=== PATIENT | male | born 1955 | race Caucasian/White ===

== ENCOUNTER 2019-03-19 10:28 | Inpatient (IN) | payer MEDICARE, OTHER ==
[2019-03-19] MEDS ORDERED: ASPIRIN 81 MG TABLET, CHEWABLE PO ONE (10:43)
--- NOTE | 2019-03-19 10:45 | ER Document Report ---
ED Medical Screen (RME) - General Chief Complaint: Shortness Of Breath Stated Complaint: SHORT OF BREATH,PALPITATIONS Time Seen by Provider: 03/19/19 10:39 Mode of Arrival: Ambulatory Information source: Patient Notes: 63-year-old male with history of CHF A. gloria presents to the emergency department with complaints of 2 days of shortness of breath. Reports he gets short of breath walking 10 steps. Denies vomiting diarrhea. Reports chest tightness to the left side of his chest. Patient is taking Pradaxa. [employer] is Dr. Tellez out [facility]. I have greeted and performed a rapid initial assessment of this patient. A comprehensive ED assessment and evaluation of the patient, analysis of test results and completion of the medical decision making process will be conducted by additional ED providers. Dictation of this chart was performed using voice recognition software; therefore, there may be some unintended grammatical errors. - Related Data Allergies/Adverse Reactions: nitroglycerin Allergy (Verified 03/19/19 10:43) Past Medical History - Social History Chew tobacco use (# tins/day): No Frequency of alcohol use: None Drug Abuse: None Physical Exam - Vital signs Vitals: Temp Pulse Resp BP Pulse Ox 97.8 F 93 24 H 157/98 H 96 03/19/19 10:36 03/19/19 10:36 03/19/19 10:36 03/19/19 10:36 03/19/19 10:36 Course - Vital Signs Vital signs: Temp Pulse Resp BP Pulse Ox 97.8 F 93 24 H 157/98 H 96 03/19/19 10:36 03/19/19 10:36 03/19/19 10:36 03/19/19 10:36 03/19/19 10:36
--- NOTE | 2019-03-19 11:46 | EKG REPORT ---
SEVERITY:- ABNORMAL ECG - ATRIAL FIBRILLATION, V-RATE 89-115 LVH WITH SECONDARY REPOLARIZATION ABNORMALITY LEFT BUNDLE BRANCH BLOCK : Confirmed by: Meaghan Garcia MD 19-Mar-2019 11:45:37
[2019-03-19 12:12] LABS: ABSOLUTE EOSINOPHILS # (AUTO) 0.1 10^3/uL (0.0-0.6); ABSOLUTE LYMPHOCYTES (AUTO) 2.2 10^3/uL (0.5-4.7); ABSOLUTE MONOCYTES (AUTO) 0.8 10^3/uL (0.1-1.4); ABSOLUTE NEUT (AUTO) 6.6 10^3/uL (1.7-8.2); BASOPHILS % (AUTO) 0.4 % (0-2); EOSINOPHILS % (AUTO) 0.7 % (0-6); HEMATOCRIT 45.2 % (37.9-51.0); HEMOGLOBIN 15.3 g/dL (13.5-17.0); LYMPHOCYTES % (AUTO) 22.3 % (13-45); MEAN CORPUSCULAR HEMOGLOBIN 31.4 pg (27.0-33.4); MEAN CORPUSCULAR HGB CONC 33.8 g/dL (32.0-36.0); MEAN CORPUSCULAR VOLUME 93 fl (80-97); MONOCYTES % (AUTO) 8.4 % (3-13); PLATELET COUNT 195 10^3/uL (150-450); RED BLOOD COUNT 4.87 10^6/uL (4.35-5.55); RED CELL DISTRIBUTION WIDTH 14.7 % (11.5-14.0); SEGMENTED NEUTROPHILS % (AUTO) 68.2 % (42-78); TOTAL CELLS COUNTED % (AUTO) 100 %; WHITE BLOOD COUNT 9.7 10^3/uL (4.0-10.5)
--- NOTE | 2019-03-19 12:25 | RADIOLOGY REPORT (SQ) ---
EXAM DESCRIPTION: CHEST 2 VIEWS COMPLETED DATE/TIME: 03/19/2019 11:48 am REASON FOR STUDY: chest tight sob COMPARISON: None. EXAM PARAMETERS: NUMBER OF VIEWS: two views TECHNIQUE: Digital Frontal and Lateral radiographic views of the chest acquired. RADIATION DOSE: NA LIMITATIONS: none FINDINGS: LUNGS AND PLEURA: Interstitial pulmonary edema is present with Bryant lines at both lung b ases. Pulmonary vascular congestion is present. No gross pleural effusion. No pneumothorax. MEDIASTINUM AND HILAR STRUCTURES: No masses or contour abnormalities. HEART AND VASCULAR STRUCTURES: Mild cardiomegaly BONES: No acute findings. HARDWARE: None in the chest. OTHER: No other significant finding. IMPRESSION: Mild cardiomegaly with interstitial pulmonary edema. TECHNICAL DOCUMENTATION: JOB ID: [id number] [employer]- All Rights Reserved Reading location - IP/workstation name: [email or web address]
[2019-03-19 12:29] LABS: ALBUMIN 4.1 g/dL (3.5-5.0); ALKALINE PHOSPHATASE 51 U/L (38-126); ANION GAP 10 (5-19); ASPARTATE AMINO TRANSFERASE 29 U/L (17-59); BILIRUBIN,DIRECT 0.1 mg/dL (0.0-0.4); BILIRUBIN,TOTAL 1.1 mg/dL (0.2-1.3); BLOOD UREA NITROGEN 16 mg/dL (7-20); CALCIUM 9.7 mg/dL (8.4-10.2); CARBON DIOXIDE 25 mmol/L (22-30); CHLORIDE 106 mmol/L (98-107); GLUCOSE 177 mg/dL (75-110); POTASSIUM 3.9 mmol/L (3.6-5.0); TOTAL PROTEIN 7.1 g/dL (6.3-8.2)
[2019-03-19 12:41] LABS: TROPONIN I 0.058 ng/mL
[2019-03-19] MEDS ORDERED: FUROSEMIDE INJ/PF 20 MG/2 ML SDV IV ONE (13:46)
--- NOTE | 2019-03-19 13:46 | ER Document Report ---
ED General - General Chief Complaint: Shortness Of Breath Stated Complaint: SHORT OF BREATH,PALPITATIONS Time Seen by Provider: 03/19/19 10:39 Mode of Arrival: Ambulatory Notes: 63-year-old male with medical history of CHF and A. fib presents with complaints of dyspnea for the past 2 days. Patient states it is worse with exertion and states it feels like he cannot get a full breath in. Pt states he becomes short of breath after walking only 10 steps. Patient states also feels like his abdomen is more swollen. Patient takes his lasix once daily. Patient has been dropping sats to 91% in triage and was placed on oxygen. Pt denies ever being on O2. Pt has a history of ablation and cardioversion in 2015. - Related Data Allergies/Adverse Reactions: nitroglycerin Adverse Reaction (Verified 03/19/19 14:56) Hypotension Home Medications: coreg pradaxa entresto, januvia, atorvastatin, furosemide. Home dosage list on chart. Past Medical History - General Information source: Patient - Social History Smoking Status: Former Smoker Chew tobacco use (# tins/day): No Frequency of alcohol use: None Drug Abuse: None Family History: None Patient has suicidal ideation: No Patient has homicidal ideation: No - Past Medical History Cardiac Medical History: Reports: Hx Atrial Fibrillation, Hx Congestive Heart Failure, Hx Hypertension Denies: Hx Hypercholesterolemia Endocrine Medical History: Reports: Hx Diabetes Mellitus Type 2 Past Surgical History: Reports: Hx Cardiac Catheterization, Hx Cardiac Surgery - ablation, Hx Tonsillectomy Review of Systems - Review of Systems Notes: Constitutional: Negative for fever. HENT: Negative for sore throat. Eyes: Negative for visual changes. Cardiovascular: Negative for chest pain. Respiratory: Positive for shortness of breath. Gastrointestinal: Negative for abdominal pain, vomiting or diarrhea. Genitourinary: Negative for dysuria. Musculoskeletal: Negative for back pain. Skin: Negative for rash. Neurological: Negative for headaches, weakness or numbness. 10 point ROS negative except as marked above and in HPI. Physical Exam - Vital signs Vitals: Temp Pulse Resp BP Pulse Ox 97.8 F 93 24 H 157/98 H 96 03/19/19 10:36 03/19/19 10:36 03/19/19 10:36 03/19/19 10:36 03/19/19 10:36 - Notes Notes: GENERAL: Well-appearing, well-nourished and in no acute distress. HEAD: Atraumatic, normocephalic. EYES: Pupils equal round and reactive to light, extraocular movements intact, sclera anicteric, conjunctiva are normal. NECK: Normal range of motion, supple without lymphadenopathy or JVD. LUNGS: Breath sounds clear to auscultation bilaterally and equal. No wheezes rales or rhonchi. HEART: Irregularly irregular rate and rhythm without murmurs, rubs or gallops. ABDOMEN: Soft, nontender, mildly distended. No guarding, no rebound. No masses appreciated. EXTREMITIES: Normal range of motion, no pitting or edema. No clubbing or cyanosis. NEUROLOGICAL: Cranial nerves II through XII grossly intact. Normal speech, normal gait. PSYCH: Normal mood, normal affect. SKIN: Warm, Dry, normal turgor, no rashes or lesions noted. Course - Re-evaluation Re-evalutation: 03/19/19 63-year-old male presents with dyspnea for 2 days. Pt was dropping O2 to 91% in triage and thus pt was placed on O2. CXR shows interstitial pulmonary edema with pulmonary vascular congestion and mild cardiomegaly. BNP is elevated. Labwork otherwise unremarkable. Concern for acute CHF exacerbation. 03/19/19 14:05 Discussed with attending, Dr. Olson, who agreed with plan of care for admission. Hospitalist consulted for admission. [facility]ACILITY ATTENDANT Collin Doherty accepted pt for admission. - Vital Signs Vital signs: Temp Pulse Resp BP Pulse Ox 97.5 F 103 H 18 155/101 H 93 03/19/19 17:50 03/19/19 19:00 03/19/19 17:50 03/19/19 17:50 03/19/19 17:50 - Laboratory Result Diagrams: 03/19/19 11:35 03/19/19 11:35 Laboratory results interpreted by me: 03/19/19 03/19/19 03/19/19 11:35 11:35 11:35 RDW 14.7 H Glucose 177 H NT-Pro-B Natriuret Pep 6070 H Discharge - Discharge Clinical Impression: Acute exacerbation of CHF (congestive heart failure) Qualifiers: Heart failure type: unspecified Qualified Code(s): I50.9 - Heart failure, unspecified Condition: Stable Disposition: ADMITTED OBSERVATION Admitting Provider: Martínez (Hospitalist) Unit Admitted: Medical Floor
[2019-03-19] MEDS ORDERED: MAG HYDROX/AL HYDROX/SIMETH SUSP 30 ML UDCUP PO PRN (14:31)
[2019-03-19] MEDS ORDERED: ONDANSETRON HCL INJ/PF 4 MG/2 ML SDV IV PRN (14:31)
[2019-03-19] MEDS ORDERED: ACETAMINOPHEN 325 MG TABLET PO PRN (14:31)
[2019-03-19] MEDS ORDERED: GLUCAGON,HUMAN RECOMB 1 MG INJ IM PRN (14:38)
[2019-03-19] MEDS ORDERED: DEXTROSE 40% GEL 15 GM TUBE PO PRN ×2 (14:38)
[2019-03-19] MEDS ORDERED: DEXTROSE 50%-WATER 25 GM/50 ML DISP.SYRIN IV PRN ×2 (14:38)
--- NOTE | 2019-03-19 14:47 | PDOC H&P ---
History of Present Illness Admission Date/PCP: 03/19/2019 No primary care Patient complains of: Shortness of breath palpitations History of Present Illness: SCOTT KAMINSKI is a 63 year old male Past Medical History Cardiac Medical History: Reports: Atrial Fibrillation, Congestive Heart Failure, Hypertension Denies: Hyperlipidema Endocrine Medical History: Reports: Diabetes Mellitus Type 2 Past Surgical History Past Surgical History: Reports: Cardiac Catheterization, Tonsillectomy Social History Information Source: Patient Lives with: Family Smoking Status: Former Smoker Electronic Cigarette use?: No Frequency of Alcohol Use: None Hx Recreational Drug Use: No Drugs: None Hx Prescription Drug Abuse: No - Advance Directive Resuscitation Status: Full Code Family History Family History: Hyperlipidemia, Hypertension Parental Family History Reviewed: Yes Children Family History Reviewed: Yes Sibling(s) Family History Reviewed.: Yes Medication/Allergy Home Medications: Atorvastatin Calcium [Lipitor 20 mg Tablet] 20 mg PO QHS 03/19/19 Dabigatran Etexilate Mesylate [Pradaxa 150 mg Capsule] 150 mg PO Q12 03/19/19 Gabapentin 800 mg PO Q8 03/19/19 Nifedipine [Nifedipine ER] 60 mg PO DAILY 03/19/19 Sacubitril/Valsartan [Entresto 97 mg/103 mg Tablet] 1 tab PO Q12 03/19/19 Sitagliptin Phosphate [Januvia 50 mg Tablet] 100 mg PO DAILY 03/19/19 Allergies/Adverse Reactions: nitroglycerin Allergy (Verified 03/19/19 10:43) Review of Systems Constitutional: ABSENT: chills, fever(s), headache(s), weight gain, weight loss Eyes: ABSENT: visual disturbances Ears: ABSENT: hearing changes Cardiovascular: PRESENT: palpitations. ABSENT: chest pain, dyspnea on exertion, edema, orthropnea Respiratory: PRESENT: dyspnea. ABSENT: cough, hemoptysis Gastrointestinal: ABSENT: abdominal pain, constipation, diarrhea, hematemesis, hematochezia, nausea, vomiting Genitourinary: ABSENT: dysuria, hematuria Musculoskeletal: ABSENT: joint swelling Integumentary: ABSENT: rash, wounds Neurological: ABSENT: abnormal gait, abnormal speech, confusion, dizziness, focal weakness, syncope Psychiatric: ABSENT: anxiety, depression, homidical ideation, suicidal ideation Endocrine: ABSENT: cold intolerance, heat intolerance, polydipsia, polyuria Hematologic/Lymphatic: ABSENT: easy bleeding, easy bruising Physical Exam Vital Signs: Temp Pulse Resp BP Pulse Ox 97.8 F 93 25 H 169/103 H 93 03/19/19 10:36 03/19/19 10:36 03/19/19 11:36 03/19/19 11:36 03/19/19 11:36 Intake & Output 03/18/19 03/19/19 03/20/19 06:59 06:59 06:59 Weight 101.5 kg General appearance: PRESENT: no acute distress, well-developed, well-nourished Head exam: PRESENT: atraumatic, normocephalic Eye exam: PRESENT: conjunctiva pink, EOMI, PERRLA. ABSENT: scleral icterus Ear exam: PRESENT: normal external ear exam Mouth exam: PRESENT: moist, tongue midline Neck exam: ABSENT: carotid bruit, JVD, lymphadenopathy, thyromegaly Respiratory exam: PRESENT: decreased breath sounds, rales, symmetrical, unlabored. ABSENT: rhonchi, wheezes Cardiovascular exam: PRESENT: RRR. ABSENT: diastolic murmur, rubs, systolic murmur Pulses: PRESENT: normal dorsalis pedis pul Vascular exam: PRESENT: normal capillary refill GI/Abdominal exam: PRESENT: normal bowel sounds, soft. ABSENT: distended, guarding, mass, organolmegaly, rebound, tenderness Rectal exam: PRESENT: deferred Extremities exam: PRESENT: full ROM. ABSENT: calf tenderness, clubbing, pedal edema Neurological exam: PRESENT: alert, awake, oriented to person, oriented to place, oriented to time, oriented to situation, CN II-XII grossly intact. ABSENT: motor sensory deficit Psychiatric exam: PRESENT: appropriate affect, normal mood. ABSENT: homicidal ideation, suicidal ideation Skin exam: PRESENT: dry, intact, warm. ABSENT: cyanosis, rash Results Laboratory Results: 03/19/19 11:35 03/19/19 11:35 03/19/19 03/19/19 11:35 11:35 WBC 9.7 RBC 4.87 Hgb 15.3 Hct 45.2 MCV 93 MCH 31.4 MCHC 33.8 RDW 14.7 H Plt Count 195 Seg Neutrophils % 68.2 Sodium 141.0 Potassium 3.9 Chloride 106 Carbon Dioxide 25 Anion Gap 10 BUN 16 Creatinine 0.95 Est GFR ( Amer) > 60 Glucose 177 H Calcium 9.7 Total Bilirubin 1.1 AST 29 Alkaline Phosphatase 51 Total Protein 7.1 Albumin 4.1 03/19/19 11:35 Troponin I 0.058 NT-Pro-B Natriuret Pep 6070 H Impressions: Chest X-Ray 03/19/19 10:43 IMPRESSION: Mild cardiomegaly with interstitial pulmonary edema. Assessment and Plan - Diagnosis (1) Acute on chronic systolic (congestive) heart failure Is this a current diagnosis for this admission?: Yes Plan: 03/19/2019-admit to IM. Continue beta-blockers, Entresto, aspirin lactone and Lasix 40 mg IV 3 times daily. Echocardiogram. Make changes plan of care further once we have return of diagnostics. (2) Type 2 diabetes mellitus Is this a current diagnosis for this admission?: Yes Plan: 03/19/2019-continue home oral anti-diabetic medication. Carbohydrate controlled diet. Sliding scale insulin before meals and at bedtime (3) Hypertension Is this a current diagnosis for this admission?: Yes Plan: 03/19/2019-continue all home medications other than Coreg. Switching Coreg to metoprolol succinate 25 g p.o. twice daily will titrate to effect. Patient will also be diuresed and given nitro paste. (4) Hyperlipidemia Is this a current diagnosis for this admission?: Yes Plan: 03/19/2019-lipid panel continue antilipidemetics - Time Time Spent with patient: 35 or more minutes - Inpatient Certification Based on my medical assessment, after consideration of the patient's comorbidities, presenting symptoms, or acuity I expect that the services needed warrant INPATIENT care.: Yes I certify that my determination is in accordance with my understanding of Medicare's requirements for reasonable and necessary INPATIENT services [42 CFR 412.3e].: Yes Medical Necessity: Significant Comorbidiites Make Outpatient Treatment Too Ri denae, Need Close Monitoring Due to Risk of Patient Decompensation
[2019-03-19] MEDS ORDERED: NITROGLYCERIN 2% OINTMENT 1 GM PACKET ONE (15:00)
[2019-03-19] MEDS ORDERED: MORPHINE SULFATE 10 MG/ML INJ IV ONE (15:00)
[2019-03-19] MEDS ORDERED: NITROGLYCERIN 2% OINTMENT 1 GM PACKET TP ONE (15:04)
[2019-03-19] MEDS: INSULIN REG, HUMAN 100 UNIT/ML 3 ML VIAL (PYX) SUBCUT SCH ×2 (15:17→21:35)
[2019-03-19] MEDS ORDERED: INFLUENZA QUAD (6MOS+) 2019-20 VAC 0.5 ML SYR IM ONE (18:45)
[2019-03-19] MEDS: FUROSEMIDE INJ/PF 40 MG/4 ML SDV IV SCH (19:54)
[2019-03-19] MEDS: METOPROLOL SUCCINATE 25 MG TAB.SR.24H PO SCH (19:54)
[2019-03-19] MEDS: OXYCODONE-ACETAMINOPHEN 5-325 MG TABLET PO PRN ×2 (19:54→23:56)
[2019-03-19] MEDS: TEMAZEPAM 15 MG CAPSULE PO PRN (19:57)
[2019-03-20 04:46] LABS: ABSOLUTE BASOPHILS # (AUTO) 0.1 10^3/uL (0.0-0.2); ABSOLUTE EOSINOPHILS # (AUTO) 0.1 10^3/uL (0.0-0.6); ABSOLUTE LYMPHOCYTES (AUTO) 2.5 10^3/uL (0.5-4.7); ABSOLUTE MONOCYTES (AUTO) 0.9 10^3/uL (0.1-1.4); ABSOLUTE NEUT (AUTO) 7.3 10^3/uL (1.7-8.2); BASOPHILS % (AUTO) 0.5 % (0-2); EOSINOPHILS % (AUTO) 0.8 % (0-6); HEMATOCRIT 44.5 % (37.9-51.0); HEMOGLOBIN 15.1 g/dL (13.5-17.0); LYMPHOCYTES % (AUTO) 23.5 % (13-45); MEAN CORPUSCULAR HEMOGLOBIN 31.5 pg (27.0-33.4); MEAN CORPUSCULAR HGB CONC 33.9 g/dL (32.0-36.0); MEAN CORPUSCULAR VOLUME 93 fl (80-97); PLATELET COUNT 178 10^3/uL (150-450); RED BLOOD COUNT 4.79 10^6/uL (4.35-5.55); RED CELL DISTRIBUTION WIDTH 14.8 % (11.5-14.0); SEGMENTED NEUTROPHILS % (AUTO) 67.2 % (42-78); TOTAL CELLS COUNTED % (AUTO) 100 %; WHITE BLOOD COUNT 10.9 10^3/uL (4.0-10.5)
[2019-03-20 05:04] LABS: ANION GAP 12 (5-19); BLOOD UREA NITROGEN 19 mg/dL (7-20); CALCIUM 8.8 mg/dL (8.4-10.2); CARBON DIOXIDE 28 mmol/L (22-30); CHLORIDE 103 mmol/L (98-107); CHOLESTEROL 105.38 mg/dL (0-200); GLUCOSE 149 mg/dL (75-110); PHOSPHORUS 4.4 mg/dL (2.5-4.5); TRIGLYCERIDES 99 mg/dL (<150)
[2019-03-20 05:14] LABS: DIRECT LDL 72 mg/dL (<100)
[2019-03-20] MEDS: OXYCODONE-ACETAMINOPHEN 5-325 MG TABLET PO PRN ×5 (05:46→22:45)
[2019-03-20] MEDS: METOPROLOL SUCCINATE 25 MG TAB.SR.24H PO SCH (05:46)
[2019-03-20] MEDS: INSULIN REG, HUMAN 100 UNIT/ML 3 ML VIAL (PYX) SUBCUT SCH ×4 (07:45→22:45)
--- NOTE | 2019-03-20 07:56 | PDOC PROGRESS REPORT ---
Subjective Progress Note for:: 03/20/19 Subjective:: 03/20/2019-abdominal pain Reason For Visit: ACUTE EXACERBATION OF CHF Physical Exam Vital Signs: Temp Pulse Resp BP Pulse Ox 98.3 F 92 18 150/106 H 96 03/20/19 03:21 03/20/19 07:00 03/20/19 03:21 03/20/19 03:21 03/20/19 03:21 Intake & Output 03/19/19 03/20/19 03/21/19 06:59 06:59 06:59 Output Total 600 Balance -600 Weight 100.2 kg General appearance: PRESENT: no acute distress, well-developed, well-nourished Neck exam: ABSENT: carotid bruit, JVD, lymphadenopathy, thyromegaly Respiratory exam: PRESENT: clear to auscultation sherman. ABSENT: rales, rhonchi, wheezes Cardiovascular exam: PRESENT: RRR. ABSENT: diastolic murmur, rubs, systolic murmur Pulses: PRESENT: normal dorsalis pedis pul Vascular exam: PRESENT: normal capillary refill GI/Abdominal exam: PRESENT: hypoactive bowel sounds, soft, other - Good tympanic Rectal exam: PRESENT: deferred Extremities exam: PRESENT: full ROM. ABSENT: calf tenderness, clubbing, pedal edema Neurological exam: PRESENT: alert, awake, oriented to person, oriented to place, oriented to time, oriented to situation, CN II-XII grossly intact. ABSENT: motor sensory deficit Psychiatric exam: PRESENT: appropriate affect, normal mood. ABSENT: homicidal ideation, suicidal ideation Skin exam: PRESENT: dry, intact, warm. ABSENT: cyanosis, rash Results Laboratory Results: 03/20/19 04:18 03/20/19 04:18 03/19/19 03/19/19 03/20/19 11:35 11:35 04:18 WBC 9.7 10.9 H RBC 4.87 4.79 Hgb 15.3 15.1 Hct 45.2 44.5 MCV 93 93 MCH 31.4 31.5 MCHC 33.8 33.9 RDW 14.7 H 14.8 H Plt Count 195 178 Seg Neutrophils % 68.2 67.2 Sodium 141.0 Potassium 3.9 Chloride 106 Carbon Dioxide 25 Anion Gap 10 BUN 16 Creatinine 0.95 Est GFR ( Amer) > 60 Glucose 177 H Calcium 9.7 Phosphorus Magnesium Total Bilirubin 1.1 AST 29 Alkaline Phosphatase 51 Total Protein 7.1 Albumin 4.1 Triglycerides Cholesterol LDL Cholesterol Direct VLDL Cholesterol HDL Cholesterol 03/20/19 04:18 WBC RBC Hgb Hct MCV MCH MCHC RDW Plt Count Seg Neutrophils % Sodium 142.6 Potassium 4.0 Chloride 103 Carbon Dioxide 28 Anion Gap 12 BUN 19 Creatinine 1.15 Est GFR ( Amer) > 60 Glucose 149 H Calcium 8.8 Phosphorus 4.4 Magnesium 1.7 Total Bilirubin AST Alkaline Phosphatase Total Protein Albumin Triglycerides 99 Cholesterol 105.38 LDL Cholesterol Direct 72 VLDL Cholesterol 20.0 HDL Cholesterol 27 L 03/19/19 03/19/19 11:35 14:16 Troponin I 0.058 0.063 NT-Pro-B Natriuret Pep 6070 H Impressions: Chest X-Ray 03/19/19 10:43 IMPRESSION: Mild cardiomegaly with interstitial pulmonary edema. Assessment and Plan - Diagnosis (1) Acute on chronic systolic (congestive) heart failure Is this a current diagnosis for this admission?: Yes Plan: 03/19/2019-admit to [facility]. Continue beta-blockers, Entresto, aspirin lactone and Lasix 40 mg IV 3 times daily. Echocardiogram. Make changes plan of care further once we have return of diagnostics. 03/20/2019-somewhat improved. Patient continues on beta-blockers, Entresto aspirin and Spironolactone. We will continue Lasix until we see a bump in patient's creatinine and obtain an echocardiogram. (2) Type 2 diabetes mellitus Is this a current diagnosis for this admission?: Yes Plan: 03/19/2019-continue home oral anti-diabetic medication. Carbohydrate controlled diet. Sliding scale insulin before meals and at bedtime 03/20/2019-controlled at this time continue current therapy as prescribed above. (3) Hypertension Is this a current diagnosis for this admission?: Yes Plan: 03/19/2019-continue all home medications other than Coreg. Switching Coreg to metoprolol succinate 25 g p.o. twice daily will titrate to effect. Patient will also be diuresed and given nitro paste. 03/20/2019-stable at this time continue to follow (4) Hyperlipidemia Is this a current diagnosis for this admission?: Yes Plan: 03/19/2019-lipid panel continue antilipidemetics 03/20/2019-continue statin (5) Abdominal pain Is this a current diagnosis for this admission?: Yes Plan: 03/20/2019-unknown etiology at this time. Patient states his stomach is much more round and full than typical. Generalized abdominal pain. Will obtain a CT abdomen pelvis with IV contrast. Make change plan of care as appropriate - Time Time Spent with patient: 15-24 minutes - Inpatient Certification Based on my medical assessment, after consideration of the patient's co morbidities, presenting symptoms, or acuity I expect that the services needed warrant INPATIENT care.: Yes I certify that my determination is in accordance with my understanding of Medicare's requirements for reasonable and necessary INPATIENT services [42 CFR 412.3e].: Yes Medical Necessity: Significant Comorbidiites Make Outpatient Treatment Too Risky, Need Close Monitoring Due to Risk of Patient Decompensation, Other - Continue IV diuresis
[2019-03-20] MEDS: ASPIRIN 81 MG TABLET, ENT COATED PO SCH (09:27)
[2019-03-20] MEDS: FUROSEMIDE INJ/PF 40 MG/4 ML SDV IV SCH ×3 (09:27→17:09)
[2019-03-20] MEDS: SACUBITRIL/VALSARTAN 97 MG/103 MG TABLET PO SCH ×2 (09:27→22:45)
[2019-03-20] MEDS: DABIGATRAN ETEXILATE 150 MG CAPSULE PO SCH ×2 (09:27→22:45)
[2019-03-20] MEDS: SITAGLIPTIN PHOSPHATE 50 MG TABLET PO SCH (09:27)
[2019-03-20] MEDS ORDERED: SPIRONOLACTONE 25 MG TABLET PO SCH (10:00)
--- NOTE | 2019-03-20 13:36 | RADIOLOGY REPORT (SQ) ---
EXAM DESCRIPTION: CT ABD/PELVIS WITH IV ONLY COMPLETED DATE/TIME: 03/20/2019 11:51 am REASON FOR STUDY: abdominal pain COMPARISON: None. TECHNIQUE: CT scan of the abdomen and pelvis performed using helical scanning technique with dynamic intravenous contrast injection. No oral contrast. Images reviewed with lung, soft tissue, and bone windows. Reconstructed coronal and sagittal MPR images reviewed. Delayed images for evaluation of the urinary system also acquired. All images stored on PACS. All CT scanners at this facility use dose modulation, iterative reconstruction, and/or weight based d osing when appropriate to reduce radiation dose to as low as reasonably achievable (ALARA). [facility]: Dose Right [facility]: CareDose [facility]: Dose Right [facility]: Teradose 4D [facility]: [employer] CONTRAST TYPE AND DOSE: contrast/concentration: Isovue mg/ml; Total Contrast Delivered: 100.0 ml; T otal Saline Delivered: 72.0 ml RENAL FUNCTION: Creatinine 1.2 RADIATION DOSE: CT Rad equipment meets quality standard of care and radiation dose reduction techniq ues were employed. CTDIvol: 15.7 - 17.8 mGy. DLP: 1993 mGy-cm.. LIMITATIONS: None. FINDINGS: LOWER CHEST: No significant findings. No nodules or infiltrates. LIVER and GALLBLADDER: Along the gallbladder fossa, medial to the gallbladder, a 4 x 4 cm fluid-fille d structure is present medial to the gallbladder. This could represent a gallbladder folded upon its elf in the gallbladder fossa. A duplicated gallbladder floor choledochal cyst along the gallbladder fossa is possible. No radiopaque stones are identified. No gross pericholecystic fluid. Common sherman e duct at the [place] hepatis is normal size. No intrahepatic biliary ductal dilatation. Liver is unremarkable otherwise. SPLEEN: Normal size. No focal lesions. PANCREAS: No masses. No significant calcifications. No adjacent inflammation or peripancreatic fluid collections. Pancreatic duct not dilated. ADRENAL GLANDS: Right adrenal unremarkable. 14 mm nodule left adrenal gland RIGHT KIDNEY AND URETER: No solid masses. Multiple right renal cortical cysts, largest is 2.5 cm rig ht upper pole kidney. No significant calcifications. No hydronephrosis or hydroureter. LEFT KIDNEY AND URETER: No solid masses. Multiple left-sided renal cortical cysts are present, large st is 2.4 cm of the left upper pole kidney. No significant calcifications. No hydronephrosis or hy droureter. AORTA AND VESSELS: No aneurysm. No dissection. Renal arteries, SMA, celiac without stenosis. RETROPERITONEUM: No retroperitoneal adenopathy, hemorrhage or masses. BOWEL AND PERITONEAL CAVITY: No masses or inflammatory changes. No free fluid or peritoneal masses. APPENDIX: Normal. PELVIS: No mass. No free fluid. Normal bladder. ABDOMINAL WALL: No masses. No hernias. BONES: Lower lumbar fusion at L4-5 OTHER: No other significant finding. IMPRESSION: Unusual configuration the gallbladder, either folded upon itself within the gallbladder fossa, or perhaps, duplicated gallbladder. No stones in the gallbladder, no gross pericholecystic fl uid TECHNICAL DOCUMENTATION: JOB ID: [id number] Quality ID # [id number]: Final reports with documentation of one or more dose reduction techniques (e.g., Au tomated exposure control, adjustment of the mA and/or kV according to patient size, use of iterative reconstruction technique) 2010 [employer]- All Rights Reserved Reading location - IP/workstation name: [email or web address]
[2019-03-20] MEDS: METOPROLOL SUCCINATE 50 MG TAB.SR.24H PO SCH (17:09)
[2019-03-20] MEDS ORDERED: ATORVASTATIN CALCIUM 20 MG TABLET PO SCH (22:00)
[2019-03-20] MEDS: TEMAZEPAM 15 MG CAPSULE PO PRN (22:45)
[2019-03-21] MEDS: OXYCODONE-ACETAMINOPHEN 5-325 MG TABLET PO PRN ×2 (03:24→09:06)
[2019-03-21 06:07] LABS: ABSOLUTE BASOPHILS # (AUTO) 0.1 10^3/uL (0.0-0.2); ABSOLUTE EOSINOPHILS # (AUTO) 0.2 10^3/uL (0.0-0.6); ABSOLUTE LYMPHOCYTES (AUTO) 3.9 10^3/uL (0.5-4.7); ABSOLUTE MONOCYTES (AUTO) 0.7 10^3/uL (0.1-1.4); ABSOLUTE NEUT (AUTO) 4.5 10^3/uL (1.7-8.2); BASOPHILS % (AUTO) 0.7 % (0-2); EOSINOPHILS % (AUTO) 1.9 % (0-6); HEMATOCRIT 45.7 % (37.9-51.0); HEMOGLOBIN 15.3 g/dL (13.5-17.0); LYMPHOCYTES % (AUTO) 41.2 % (13-45); MEAN CORPUSCULAR HEMOGLOBIN 31.2 pg (27.0-33.4); MEAN CORPUSCULAR HGB CONC 33.5 g/dL (32.0-36.0); MEAN CORPUSCULAR VOLUME 93 fl (80-97); PLATELET COUNT 153 10^3/uL (150-450); RED CELL DISTRIBUTION WIDTH 14.7 % (11.5-14.0); SEGMENTED NEUTROPHILS % (AUTO) 48.2 % (42-78); TOTAL CELLS COUNTED % (AUTO) 100 %; WHITE BLOOD COUNT 9.3 10^3/uL (4.0-10.5)
[2019-03-21] MEDS: METOPROLOL SUCCINATE 50 MG TAB.SR.24H PO SCH (06:19)
[2019-03-21 06:35] LABS: ANION GAP 9 (5-19); BLOOD UREA NITROGEN 22 mg/dL (7-20); CALCIUM 8.7 mg/dL (8.4-10.2); CARBON DIOXIDE 32 mmol/L (22-30); CHLORIDE 98 mmol/L (98-107); GLUCOSE 143 mg/dL (75-110)
[2019-03-21] MEDS ORDERED: POTASSIUM CHLORIDE 10 MEQ CAPSULE.ER PO SCH ×2 (08:00→10:00)
--- NOTE | 2019-03-21 08:17 | PDOC DISCHARGE SUMMARY ---
Impression - Admit/DC Date/PCP Admission Date/Primary Care Provider: 03/19/19 14:54 Discharge Date: 03/21/19 - Discharge Diagnosis (1) Acute on chronic systolic (congestive) heart failure Is this a current diagnosis for this admission?: Yes (2) Type 2 diabetes mellitus Is this a current diagnosis for this admission?: Yes (3) Hypertension Is this a current diagnosis for this admission?: Yes (4) Hyperlipidemia Is this a current diagnosis for this admission?: Yes - Additional Information Resuscitation Status: Full Code Discharge Diet: As Tolerated Discharge Activity: Activity As Tolerated Prescriptions: Spironolactone [Aldactone 25 mg Tablet] 25 mg PO DAILY #30 tablet Metoprolol Succinate [Toprol Xl 50 mg Tab.sr] 50 mg PO Q12A #60 tab.sr.24h Home Medications: Atorvastatin Calcium [Lipitor 20 mg Tablet] 20 mg PO QHS 03/19/19 Dabigatran Etexilate Mesylate [Pradaxa 150 mg Capsule] 150 mg PO Q12 03/19/19 Sacubitril/Valsartan [Entresto 97 mg/103 mg Tablet] 1 tab PO Q12 03/19/19 Sitagliptin Phosphate [Januvia 50 mg Tablet] 100 mg PO DAILY 03/19/19 Aspirin [Ecotrin 81 mg EC Tablet] 81 mg PO DAILY tabec 03/21/19 Metoprolol Succinate [Toprol Xl 50 mg Tab.sr] 50 mg PO Q12A #60 tab.sr.24h 03/21/19 Spironolactone [Aldactone 25 mg Tablet] 25 mg PO DAILY #30 tablet 03/21/19 History of Present Illiness History of Present Illness: SCOTT KAMINSKI is a 63 year old male Hospital Course Hospital Course: Patient was admitted from the ER with a history of systolic congestive heart failure and atrial fibrillation. Patient placed on IV Lasix 40 mg 3 times daily and I have titrated other medications for maximum effect. Patient will continue to need to have all systolic heart failure medications titrated to its maximal effect with a repeat echocardiogram that would be followed up with by his primary care practitioner on discharge. I discussed this plan with patient and patient agreeable plan of care. Physical Exam Vital Signs: Temp Pulse Resp BP Pulse Ox 98.7 F 82 18 136/66 H 97 03/21/19 03:35 03/21/19 07:00 03/21/19 03:35 03/21/19 03:35 03/21/19 03:35 Intake & Output 03/20/19 03/21/19 03/22/19 06:59 06:59 06:59 Intake Total 902 Output Total 600 1000 Balance -600 -98 Weight 100.2 kg 100 kg General appearance: PRESENT: no acute distress, well-developed, well-nourished Head exam: PRESENT: atraumatic, normocephalic Eye exam: PRESENT: conjunctiva pink, EOMI, PERRLA. ABSENT: scleral icterus Ear exam: PRESENT: normal external ear exam Mouth exam: PRESENT: moist, tongue midline Neck exam: ABSENT: carotid bruit, JVD, lymphadenopathy, thyromegaly Respiratory exam: PRESENT: clear to auscultation sherman. ABSENT: rales, rhonchi, wheezes Cardiovascular exam: PRESENT: RRR. ABSENT: diastolic murmur, rubs, systolic murmur Pulses: PRESENT: normal dorsalis pedis pul Vascular exam: PRESENT: normal capillary refill GI/Abdominal exam: PRESENT: normal bowel sounds, soft. ABSENT: distended, guarding, mass, organolmegaly, rebound, tenderness Rectal exam: PRESENT: deferred Extremities exam: PRESENT: full ROM. ABSENT: calf tenderness, clubbing, pedal edema Neurological exam: PRESENT: alert, awake, oriented to person, oriented to place, oriented to time, oriented to situation, CN II-XII grossly intact. ABSENT: motor sensory deficit Psychiatric exam: PRESENT: appropriate affect, normal mood. ABSENT: homicidal ideation, suicidal ideation Skin exam: PRESENT: dry, intact, warm. ABSENT: cyanosis, rash Results Laboratory Results: WBC 9.3 10^3/uL (4.0-10.5) 03/21/19 05:30 RBC 4.90 10^6/uL (4.35-5.55) 03/21/19 05:30 Hgb 15.3 g/dL (13.5-17.0) 03/21/19 05:30 Hct 45.7 % (37.9-51.0) 03/21/19 05:30 MCV 93 fl (80-97) 03/21/19 05:30 MCH 31.2 pg (27.0-33.4) 03/21/19 05:30 MCHC 33.5 g/dL (32.0-36.0) 03/21/19 05:30 RDW 14.7 % (11.5-14.0) H 03/21/19 05:30 Plt Count 153 10^3/uL (150-450) 03/21/19 05:30 Lymph % (Auto) 41.2 % (13-45) 03/21/19 05:30 [place] % (Auto) 8.0 % (3-13) 03/21/19 05:30 Eos % (Auto) 1.9 % (0-6) 03/21/19 05:30 Baso % (Auto) 0.7 % (0-2) 03/21/19 05:30 Absolute Neuts (auto) 4.5 10^3/uL (1.7-8.2) 03/21/19 05:30 Absolute Lymphs (auto) 3.9 10^3/uL (0.5-4.7) 03/21/19 05:30 Absolute Monos (auto) 0.7 10^3/uL (0.1-1.4) 03/21/19 05:30 Absolute Eos (auto) 0.2 10^3/uL (0.0-0.6) 03/21/19 05:30 Absolute Basos (auto) 0.1 10^3/uL (0.0-0.2) 03/21/19 05:30 Seg Neutrophils % 48.2 % (42-78) 03/21/19 05:30 Sodium 138.9 mmol/L (137-145) 03/21/19 05:30 Potassium 3.0 mmol/L (3.6-5.0) L* 03/21/19 05:30 Chloride 98 mmol/L (98-107) 03/21/19 05:30 Carbon Dioxide 32 mmol/L (22-30) H 03/21/19 05:30 Anion Gap 9 (5-19) 03/21/19 05:30 BUN 22 mg/dL (7-20) H 03/21/19 05:30 Creatinine 1.14 mg/dL (0.52-1.25) 03/21/19 05:30 Est GFR ( Amer) > 60 (>60) 03/21/19 05:30 Est GFR (MDRD) Non-Af > 60 (>60) 03/21/19 05:30 Glucose 143 mg/dL (75-110) H 03/21/19 05:30 POC Glucose 153 mg/dL (70-110) H 03/21/19 08:07 Hemoglobin A1c % 8.0 % (4.7-6.0) H 03/20/19 04:18 Calcium 8.7 mg/dL (8.4-10.2) 03/21/19 05:30 Phosphorus 4.4 mg/dL (2.5-4.5) 03/20/19 04:18 Magnesium 1.7 mg/dL (1.6-2.3) 03/20/19 04:18 Total Bilirubin 1.1 mg/dL (0.2-1.3) 03/19/19 11:35 Direct Bilirubin 0.1 mg/dL (0.0-0.4) 03/19/19 11:35 Neonat Total Bilirubin Not Reportable 03/19/19 11:35 Neonat Direct Bilirubin Not Reportable 03/19/19 11:35 Neonat Indirect Bili Not Reportable 03/19/19 11:35 AST 29 U/L (17-59) 03/19/19 11:35 ALT 42 U/L (<50) 03/19/19 11:35 Alkaline Phosphatase 51 U/L (38-126) 03/19/19 11:35 Troponin I 0.063 ng/mL 03/19/19 14:16 NT-Pro-B Natriuret Pep 6070 pg/mL (<125) H 03/19/19 11:35 Total Protein 7.1 g/dL (6.3-8.2) 03/19/19 11:35 Albumin 4.1 g/dL (3.5-5.0) 03/19/19 11:35 Triglycerides 99 mg/dL (<150) 03/20/19 04:18 Cholesterol 105.38 mg/dL (0-200) 03/20/19 04:18 LDL Cholesterol Direct 72 mg/dL (<100) 03/20/19 04:18 VLDL Cholesterol 20.0 mg/dL (10-31) 03/20/19 04:18 HDL Cholesterol 27 mg/dL (>40) L 03/20/19 04:18 03/19/19 03/19/19 11:35 14:16 Troponin I 0.058 0.063 NT-Pro-B Natriuret Pep 6070 H Impressions: Chest X-Ray 03/19/19 10:43 IMPRESSION: Mild cardiomegaly with interstitial pulmonary edema. Abdomen/Pelvis CT 03/20/19 00:00 IMPRESSION: Unusual configuration the gallbladder, either folded upon itself within the gallbladder fossa, or perhaps, duplicated gallbladder. No stones in the gallbladder, no gross pericholecystic fluid Plan Time Spent: Greater than 30 Minutes Stroke Is this a Stroke Patient?: No Acute Heart Failure - Is this a Heart Failure Patient?: Yes Documentation of LVEF assessment?: No, Document reason - Awaiting echocardiogram results we will follow-up with primary care patient has a known ejection fraction less than 40% LVEF < 40%?: Yes-if yes answer questions a through e a) Discharged on ACEI?: N/A Discharged on ARNI - Patient on Entresto b) Discharges on ARB?: Yes c) Discharged on ARNI?: Yes d) Discharged on evidence-based Beta justin(carvedilol, sustained release metoprolol succinate, or bisoprolol)?: Yes e) For LVEF <35%, discharged on Aldosterone antagonist?: Yes 3. Anticoagulant therapy for permanect/persistent/paraoxysmal Afib or Aflutter: Yes Follow-up Appointment scheduled within 7 days?: Yes
[2019-03-21] MEDS: INSULIN REG, HUMAN 100 UNIT/ML 3 ML VIAL (PYX) SUBCUT SCH (08:58)
[2019-03-21] MEDS: SITAGLIPTIN PHOSPHATE 50 MG TABLET PO SCH (09:06)
[2019-03-21] MEDS: ASPIRIN 81 MG TABLET, ENT COATED PO SCH (09:06)
[2019-03-21] MEDS: FUROSEMIDE INJ/PF 40 MG/4 ML SDV IV SCH (09:07)
[2019-03-21] MEDS: DABIGATRAN ETEXILATE 150 MG CAPSULE PO SCH (09:07)
[2019-03-21] MEDS: SACUBITRIL/VALSARTAN 97 MG/103 MG TABLET PO SCH (09:07)
[2019-03-21] MEDS ORDERED: SPIRONOLACTONE 25 MG TABLET PO SCH (10:00)
[2019-03-21 12:29] VITALS: BP 102/59
--- NOTE | 2019-03-21 15:03 | XCELERA REPORT ---
[address] [address] Transthoracic Echocardiogram Report Name: SCOTT KAMINSKI Age: 63 yrs Gender: Male : 1955 Patient Status: Inpatient Patient Location: [facility]^A Study Date: 03/21/2019 11:59 AM Height: 70 in Weight: 223 lb BSA: 2.2 m2 Procedure: A two-dimensional transthoracic echocardiogram with color flow and Doppler was performed. Study Quality: Fair. Reason For Study: chf History: CHF. Ordering Physician: CHRISTOPHER AYALA Performed By: Ese Champagne Interpretation Summary The left ventricle is mildly dilated. There is normal left ventricular wall thickness. LV EF is 30% Left ventricular systolic function is severely reduced. There is no thrombus. No ASD,VSD,or PFO seen. The right ventricle is mildly dilated. The right atrium is mild to moderately dilated. The left atrium is moderately dilated. There is no evidence of mitral valve prolapse. There is no vegetation seen on the mitral valve. There is no mitral valve stenosis. There is a moderate amount of mitral regurgitation There is no aortic valvular vegetation. There is no LVOT obstruction. There is no aortic valve stenosis There is a mild amount of aortic regurgitation There is no tricuspid stenosis. There is a moderate amount of tricuspid regurgitation At least severe pulmonary hypertension.RVSP is 60 mm of Hg , with RA mean of atleast 20. There is no pulmonic valvular stenosis. There is a mild amount of pulmonic regurgitation The aortic root is normal size. The inferior vena cava appeared dilated and did not change with respiration (RAP > 20 mmHg) There is no pericardial effusion. MMode/2D Measurements & Calculations RVDd: 4.0 cm LVIDd: 5.1 cm FS: 23.6 % Ao root diam: 3.1 cm IVSd: 0.92 cm LVIDs: 3.9 cm EDV(Teich): 124.2 ml Ao root area: 7.5 cm2 LVPWd: 1.1 cm ESV(Teich): 65.9 ml EF(Teich): 46.9 % Doppler Measurements & Calculations MV E max swetha: MV dec slope: Ao V2 max: AI max swetha: 107.1 cm/sec 991.2 cm/sec2 101.0 cm/sec 412.0 cm/sec MV A max swetha: MV dec time: Ao max PG: AI max P.9 mmHg 31.9 cm/sec 0.11 sec 4.1 mmHg AI dec slope: MV E/A: 3.4 103.9 cm/sec2 AI P1/2t: 1162 msec LV V1 max PG: PA V2 max: TR max swetha: 2.3 mmHg 64.2 cm/sec 313.8 cm/sec LV V1 max: PA max P.6 mmHg TR max P.3 cm/sec 39.8 mmHg Left Ventricle The left ventricle is mildly dilated. There is normal left ventricular wall thickness. LV EF is 30%. Left ventricular systolic function is severely reduced. LV diastolic function could not be adequately assessed due to atrial fibrilation. There is severe global hypokinesis of the left ventricle. There is no thrombus. No ASD,VSD,or PFO seen. Right Ventricle The right ventricle is mildly dilated. The right ventricular systolic function is mildly reduced. Atria The right atrium is mild to moderately dilated. The left atrium is moderately dilated. Mitral Valve There is no evidence of mitral valve prolapse. There is no vegetation seen on the mitral valve. There is no mitral valve stenosis. There is a moderate amount of mitral regurgitation. Aortic Valve There is no aortic valvular vegetation. There is no aortic valve stenosis. There is no LVOT obstruction. There is a mild amount of aortic regurgitation. Tricuspid Valve There is no tricuspid stenosis. There is a moderate amount of tricuspid regurgitation. At least severe pulmonary hypertension.RVSP is 60 mm of Hg , with RA mean of atleast 20. Pulmonic Valve There is no pulmonic valvular stenosis. There is a mild amount of pulmonic regurgitation. Great Vessels The aortic root is normal size. The inferior vena cava appeared dilated and did not change with respiration (RAP > 20 mmHg). Effusions There is no pericardial effusion. : CHRISTOPHER AYALA Lakshmi
== END 2019-03-21 13:05 | disposition home or self-care (01) | DRG 293 ==
LOC: ER 10:28 → EH 14:54 → 3N 17:18
PROVIDERS: ADMIT Internal Medicine; ATTEND Internal Medicine
DX: I11.0 Hypertensive heart disease with heart failure (principal); I50.23 Acute on chronic systolic (congestive) heart failure; I48.91 Unspecified atrial fibrillation; Z88.8 Allergy status to other drugs, medicaments and biological substances; Z87.891 Personal history of nicotine dependence; E78.5 Hyperlipidemia, unspecified; E11.9 Type 2 diabetes mellitus without complications; Z79.899 Other long term (current) drug therapy; Z82.49 Family history of ischemic heart disease and other diseases of the circulatory system; Z83.438 Family history of other disorder of lipoprotein metabolism and other lipidemia; Z23 Encounter for immunization
CPT/HCPCS: 36415; 71046; 74177; 80048; 80053; 80061; 82962; 83036; 83735; 83880; 84100; 84484; 85025; 90686; 93005; 93010; 93306; 96374; 99285; J1815; J1940; J2270; J3490

== ENCOUNTER → 2019-09-28 | Outpatient (CLI) | payer MEDICARE, OTHER ==
--- NOTE | 2019-09-28 18:28 | RADIOLOGY REPORT (SQ) ---
EXAM DESCRIPTION: CT ABD/PELVIS WITH IV ORAL IMAGES COMPLETED DATE/TIME: 09/28/2019 2:49 pm REASON FOR STUDY: R10.84 GENERALIZED ABDOMINAL PAIN, K43.9 VENTRAL HERNIA WITHOUT OBSTRUCTION R10.84 GENERALIZED ABDOMINAL PAIN K43.9 VENTRAL HERNIA WITHOUT OBSTRUCTION OR GANGRENE COMPARISON: 03/20/2019 None. TECHNIQUE: CT scan of the abdomen and pelvis performed using helical scanning technique with dynamic intravenous contrast injection. Oral contrast. Images reviewed with lung, soft tissue, and bone win dows. Reconstructed coronal and sagittal MPR images reviewed. Delayed images for evaluation of the ur inary system also acquired. All images stored on PACS. All CT scanners at this facility use dose modulation, iterative reconstruction, and/or weight based d osing when appropriate to reduce radiation dose to as low as reasonably achievable (ALARA). [facility]: Dose Right [facility]: CareDose [facility]: Dose Right [facility]: Teradose 4D [facility]: [email or web address] CONTRAST TYPE AND DOSE: contrast/concentration: Isovue 350.00 mg/ml; Total Contrast Delivered: 100.0 ml; Total Saline Delivered: 72.0 ml RENAL FUNCTION: BUN 36 creatinine 0.9 RADIATION DOSE: CT Rad equipment meets quality standard of care and radiation dose reduction techniq ues were employed. CTDIvol: 19.4 - 19.5 mGy. DLP: 2304 mGy-cm.. LIMITATIONS: None. FINDINGS: LOWER CHEST: No significant findings. No nodules or infiltrates. LIVER: Hypoattenuation of the liver. No masses. SPLEEN: Normal size. No focal lesions. PANCREAS: No masses. No significant calcifications. No adjacent inflammation or peripancreatic fluid collections. Pancreatic duct not dilated. GALLBLADDER: Once again there is an unusual configuration of the gallbladder. No stones. ADRENAL GLANDS: 13 mm left adrenal nodule is unchanged. RIGHT KIDNEY AND URETER: No solid masses. No significant calcifications. No hydronephrosis or hyd roureter. LEFT KIDNEY AND URETER: No solid masses. No significant calcifications. No hydronephrosis or hydr oureter. AORTA AND VESSELS: No aneurysm. No dissection. Renal arteries, SMA, celiac without stenosis. RETROPERITONEUM: No retroperitoneal adenopathy, hemorrhage or masses. BOWEL AND PERITONEAL CAVITY: Mild sigmoid diverticulosis. No obvious mass. No acute inflammation. APPENDIX: Normal. PELVIS: No mass. No free fluid. Normal bladder. ABDOMINAL WALL: No masses. No hernias. BONES: Posterior hardware at L4-5. OTHER: No other significant finding. IMPRESSION: Hepatic steatosis. Unusual appearance of the gallbladder. This is stable. Stable left adrenal nodule. Mild sigmoid diverticulosis with no acute inflammation. TECHNICAL DOCUMENTATION: JOB ID: [id number] Quality ID # [id number]: Final reports with documentation of one or more dose reduction techniques (e.g., Au tomated exposure control, adjustment of the mA and/or kV according to patient size, use of iterative reconstruction technique) 2010 [employer]- All Rights Reserved Reading location - IP/workstation name: [email or web address]
== END ==
LOC: RAD 12:24
PROVIDERS: ATTEND Surgery
DX: K57.30 Diverticulosis of large intestine without perforation or abscess without bleeding (principal); K43.9 Ventral hernia without obstruction or gangrene; E27.8 Other specified disorders of adrenal gland; R10.84 Generalized abdominal pain; K76.0 Fatty (change of) liver, not elsewhere classified
CPT/HCPCS: 74177; 82565